=== PATIENT | male | born 1950 | race Caucasian/White ===

== ENCOUNTER → 2023-08-17 | Outpatient (CLI) | payer OTHER ==
--- NOTE | 2023-08-17 10:05 | US ---
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 No nephrolithiasis is seen. No huyen s are identified. The urinary bladder is anechoic. Bilateral ureteral jets are seen. IMPRESSION: No significant abnormality seen.
== END | disposition home or self-care (01) ==
LOC: RADUSWWP 09:22
PROVIDERS: ATTEND Family Medicine
DX: D80.9 Immunodeficiency with predominantly antibody defects, unspecified (principal)
CPT/HCPCS: 76770

== ENCOUNTER 2024-11-07 13:28 | Inpatient (IN) | payer OTHER, MEDICARE ==
[2024-11-07 14:37] LABS: Basophils # (A) 0.13 10*3/uL (0.00-0.10); Basophils % (A) 1.4 %; Eosinophils # (A) 0.15 10*3/uL (0.04-0.35); Eosinophils % (A) 1.6 %; HCT 35.7 % (39.6-50.0); Lymphocytes # (A) 0.97 10*3/uL (0.90-5.00); Lymphocytes % (A) 10.2 %; MCH 33.8 pg (27.0-32.0); MCHC 36.4 g/dL (32.0-37.0); MCV 92.7 fL (80.0-97.0); Mean Platelet Volume 9.5 fL (9.5-12.2); Monocytes # (A) 1.21 10*3/uL (0.20-1.00); Monocytes % (A) 12.7 %; Neutrophils # (A) 7.04 10*3/uL (1.80-7.70); Neutrophils % (A) 73.8 %; Platelet Count 307 10*3/uL (140-440); RBC 3.85 10*6/uL (4.40-5.60); RDW 11.8 % (11.5-14.5); WBC 9.53 10*3/uL (4.50-10.00)
--- NOTE | 2024-11-07 14:51 | XR ---
EXAMINATION TYPE: XR chest 2V DATE OF EXAM: 11/07/2024 2:46 PM COMPARISON: 02/17/2014 CLINICAL INDICATION: Male, 73 years old with history of Chest Pain: Shortness of breath TECHNIQUE: XR chest 2V views of the chest are obtained. FINDINGS: Scattered senescent parenchymal changes noted. Hyperinflation compatible with COPD. Increased basilar markings which may reflect atelectasis or developing infiltrates. Small effusions n oted. Heart size is stable. Mediastinal structures are stable and grossly unremarkable. No evidence for hilar prominence. Degenerative changes dorsal spine. IMPRESSION: 1. Increased basilar markings which may reflect atelectasis or developing infiltrates. Small effusion s noted. [facility], , 11/07/2024 2:48 PM
[2024-11-07 14:53] LABS: INR 1.1 (<1.2); Partial Thromboplastin Time 24.8 sec (22.0-30.0); Prothrombin Time 12.3 sec (10.0-12.5)
[2024-11-07] MEDS: ASPIRIN 81 MG PO STA (14:58)
[2024-11-07 14:59] LABS: ALT 22 U/L (4-49); AST 32 U/L (17-59); African American GFR (CKD) >90 (>60 ml/min/1.73 sqM); Albumin 4.7 g/dL (3.5-5.0); Alkaline Phosphatase 99 U/L (38-126); Anion Gap 14 mmol/L; Blood Urea Nitrogen 8 mg/dL (9-20); Calcium 10.2 mg/dL (8.4-10.2); Carbon Dioxide 23 mmol/L (22-30); Chloride 94 mmol/L (98-107); Glucose 217 mg/dL (74-99); Magnesium 1.3 mg/dL (1.6-2.3); Non-African American GFR(CKD) >90 (>60 ml/min/1.73 sqM); Potassium 4.1 mmol/L (3.5-5.1); Sodium 131 mmol/L (137-145); Total Bilirubin 0.9 mg/dL (0.2-1.3); Total Protein 7.9 g/dL (6.3-8.2)
[2024-11-07 15:07] LABS: NT-Pro-B-Type Natriuretic Pept 539 pg/mL
[2024-11-07 15:09] LABS: Appearance,Urine Clear (Clear); Bilirubin,Urine Negative (Negative); Blood,Urine Negative (Negative); Color,Urine Colorless; Glucose,Urine (UA) Negative (Negative); Ketones,Urine Negative (Negative); Leukocyte Esterase,Urine Negative (Negative); Nitrite,Urine Negative (Negative); Protein,Urine Negative (Negative); Specific Gravity,Urine 1.004 (1.001-1.035); Urobilinogen,Urine <2.0 mg/dL (<2.0)
[2024-11-07] MEDS: MAGNESIUM SULFATE-D5W PMX 1 GM in DEXTROSE/WATER 1 100ML.BAG IVPB ONE ×2 (15:38→19:43)
[2024-11-07] MEDS: FUROSEMIDE 10 MG/ML 4 ML VIAL IV STA (17:00)
--- NOTE | 2024-11-07 17:26 | ED ---
General Adult HPI - General Chief complaint: Shortness of Breath Stated complaint: SOB, bilateral leg swelling Time Seen by Provider: 11/07/24 14:00 Source: patient, RN notes reviewed, old records reviewed Mode of arrival: ambulatory Limitations: no limitations - History of Present Illness Initial comments: Patient is a 73-year-old male presents emergency department complaining of progressive worsening lower extremity swelling as well as shortness of breath. No chest pain or chest discomfort. Patient has had been having the swelling for the past 3 he weeks that is progressively gotten worse. Has also noticed some exertional dyspnea. No significant orthopnea but states he does awaken multiple times per night. Denies any history of kidney disease. No cardiac history other than hypertension. Once again denies any chest pain to myself. All symptoms have been progressive over the last 3 weeks. Presents for further evaluation at this time. Denies any fevers, chills, cough. - Related Data Home Medications Medication Instructions Recorded Confirmed [place]-3/Dha/Epa/Fish Oil [Fish Oil 1 tab PO DAILY 01/22/23 11/07/24 1,000 mg Softgel] Simvastatin 20 mg PO HS 01/22/23 11/07/24 lisinopriL [Zestril] 20 mg PO DAILY 01/22/23 11/07/24 metFORMIN HCL [Glucophage] 1,000 mg PO BID 01/22/23 11/07/24 Furosemide [Lasix] 20 mg PO DAILY 11/07/24 11/07/24 Magnesium Oxide [Mag-Ox] 400 mg PO BID 11/07/24 11/07/24 Multivit-Minerals/FA/Lycopene 1 tab PO DAILY 11/07/24 11/07/24 [One-A-Day Men's 50 Plus Tablet] Potassium Chloride ER [K-Dur 10] 10 meq PO HS 11/07/24 11/07/24 amLODIPine [Norvasc] 5 mg PO HS 11/07/24 11/07/24 amLODIPine [Norvasc] 10 mg PO DAILY 11/07/24 11/07/24 atenoloL [Tenormin] 25 mg PO DAILY 11/07/24 11/07/24 Allergies Allergy/AdvReac Type Severity Reaction Status Date / Time No Known Allergies Allergy Verified 11/07/24 16:14 Review of Systems ROS Statement: Those systems with pertinent positive or pertinent negative responses have been documented in the HPI. Review of Systems: CONST: Denies fever EYES: Denies blurry vision ENT: Denies nasal congestion C/V: Denies Chest pain RESP: Endorses exertional shortness of breath GI: Denies abdominal pain : Denies dysuria SKIN: Denies rash. MSK: Denies joint pain. NEURO: Denies headache ROS Other: All systems not noted in ROS Statement are negative. Past Medical History Past Medical History: Hyperlipidemia, Hypertension, Sleep Apnea/CPAP/BIPAP History of Any Multi-Drug Resistant Organisms: None Reported Additional Past Surgical History / Comment(s): deviated septum Past Anesthesia/Blood Transfusion Reactions: No Reported Reaction Additional Past Anesthesia/Blood Transfusion Reaction / Comment(s): no blood transfusion Past Psychological History: No Psychological Hx Reported Smoking Status: Former smoker Past Alcohol Use History: None Reported Past Drug Use History: None Reported - Past Family History Mother Family Medical History: Cancer Additional Family Medical History / Comment(s): leukemia Father Family Medical History: Myocardial Infarction ([place]) General Exam - General Exam Comments Initial Comments: General: Appears in no acute distress. HEAD: Normal with no signs of head trauma. EYES: EOMI ENT: Hearing grossly intact, normal oropharynx. RESPIRATORY: Clear breath sounds bilaterally. No wheezes, rales, or rhonchi. No hypoxia. No increased work of breathing. C/V: Irregular rate and rhythm. S1 and S2 auscultated, significant symmetrical lower extremity pitting edema, peripheral pulses 2+ and intact throughout ABD: Abd is soft, nontender, nondistended EXT: Normal range of motion, no obvious deformity SKIN: No rashes or lesions observed on exposed skin. NEURO: Alert and oriented x 4. Limitations: no limitations Course Vital Signs 11/07/24 11/07/24 11/07/24 13:29 15:00 16:59 Temperature 98.8 F Pulse Rate 77 74 70 Respiratory 18 20 20 Rate Blood Pressure 163/73 142/80 146/78 O2 Sat by Pulse 98 95 97 Oximetry 11/07/24 19:40 Temperature 98.6 F Pulse Rate 86 Respiratory 20 Rate Blood Pressure 157/81 O2 Sat by Pulse 97 Oximetry Medical Decision Making - Medical Decision Making Was pt. sent in by a medical professional or institution (, PA, BRAND STRATEGIST, urgent care, hospital, or half-way...) When possible be specific @ -No Did you speak to anyone other than the patient for history (EMS, parent, family, police, friend...)? What history was obtained from this source @ -No Did you review nursing and triage notes (agree or disagree)? Why? @ -I reviewed and agree with nursing and triage notes Were old charts reviewed (outside hosp., previous admission, EMS record, old EKG, old radiological studies, urgent care reports/EKG's, half-way records)? Report findings @ -No old charts were reviewed Differential Diagnosis (chest pain, altered mental status, abdominal pain women, abdominal pain men, vaginal bleeding, weakness, fever, dyspnea, syncope, headache, dizziness, GI bleed, back pain, seizure, CVA, palpatations, mental health, musculoskeletal)? @ -Differential Dyspnea: Coronary syndrome, arrhythmia, tamponade, asthma, COPD, pulmonary embolism, pneumonia, pneumothorax, pulmonary effusion, anaphylaxis, diabetic ketoacidosis, flailed chest, pulmonary contusion, diaphragmatic rupture, anemia, neuromuscular, this is not meant to be an all-inclusive list. EKG interpreted by me (3pts min.). @ -As above X-rays interpreted by me (1pt min.). @ -Chest x-ray shows bilateral pleural effusions. CT interpreted by me (1pt min.). @ -None done U/S interpreted by me (1pt. min.). @ -None done What testing was considered but not performed or refused? (CT, X-rays, U/S, labs)? Why? @ -None What meds were considered but not given or refused? Why? @ -None Did you discuss the management of the patient with other professionals (professionals i.e. , PA, BRAND STRATEGIST, lab, RT, psych nurse, drug abuse social worker, expense clerk, teacher, special weapons unit officer, case advocate)? Give summary @ -Discussed with admitting provider, Dr. Griffiths who accepted the admission. Was smoking cessation discussed for >3mins.? @ -No Was critical care preformed (if so, how long)? @ -No Were there social determinants of health that impacted care today? How? (Homelessness, low income, unemployed, alcoholism, drug addiction, t ransportation, low edu. Level, literacy, decrease access to med. care, prison, rehab)? @ -No Was there de-escalation of care discussed even if they declined (Discuss DNR or withdrawal of care, Hospice)? DNR status @ -No What co-morbidities impacted this encounter? (DM, HTN, Smoking, COPD, CAD, Cance r, CVA, ARF, Chemo, Hep., AIDS, mental health diagnosis, sleep apnea, morbid obesity)? @ -None Was patient admitted / discharged? Hospital course, mention meds given and route, prescriptions, significant lab abnormalities, going to OR and other pertinent info. @ -Patient presents with clinical symptoms of CHF. EKG shows what appears to be new onset atrial fibrillation. Unknown when it started. He is currently rate controlled. Vitals are within acceptable limits. We will obtain general cardiopulmonary workup. Patient was in agreement this plan. EKG x 2 showed no obvious acute ischemic process. Labs remarkable for a normal age-adjusted D-dimer. Patient is mildly hypomagnesemic to 1.3 which was replenished. Troponin is undetectable. BNP is within acceptable limits for the patient's age. I updated the patient. He will be admitted. I did initiate IV Lasix for the patient. I will defer anticoagulation for the admitting team. Patient was given an aspirin. Cardiology consulted. Echo ordered. I spoke with the admitting provider, Dr. Griffiths who accepted the admission. Undiagnosed new problem with uncertain prognosis? @ -No Drug Therapy requiring intensive monitoring for toxicity (Heparin, Nitro, Insulin, Cardizem)? @ -No Were any procedures done? @ -No Diagnosis/symptom? @ -New onset atrial fibrillation, CHF Acute, or Chronic, or Acute on Chronic? @ -Acute Uncomplicated (without systemic symptoms) or Complicated (systemic symptoms)? @ -Complicated Side effects of treatment? @ -No Exacerbation, Progression, or Severe Exacerbation? @ -No Poses a threat to life or bodily function? How? (Chest pain, [place], [place], pneumonia, PE, COPD, DKA, ARF, appy, cholecystitis, CVA, Diverticulitis, Homicidal, Suicidal, threat to staff... and all critical care pts) @ -Yes - Lab Data Result diagrams: 11/07/24 14:11 11/07/24 14:11 Lab Results 11/07/24 11/07/24 11/07/24 Range/Units 14:11 14:11 14:11 WBC 9.53 (4.50-10.00) 10*3/uL RBC 3.85 L (4.40-5.60) 10*6/uL Hgb 13.0 (13.0-17.0) g/dL Hct 35.7 L (39.6-50.0) % MCV 92.7 (80.0-97.0) fL MCH 33.8 H (27.0-32.0) pg MCHC 36.4 (32.0-37.0) g/dL Plt Count 307 (140-440) 10*3/uL MPV 9.5 (9.5-12.2) fL Immature Gran % (Auto) 0.3 % Neutrophils % 73.8 % Lymphocytes % 10.2 % Monocytes % 12.7 % Eosinophils % 1.6 % Basophils % 1.4 % Immature Gran # 0.03 (0.00-0.04) 10*3/uL Neutrophils # 7.04 (1.80-7.70) 10*3/uL Lymphocytes # 0.97 (0.90-5.00) 10*3/uL Monocytes # 1.21 H (0.20-1.00) 10*3/uL Eosinophils # 0.15 (0.04-0.35) 10*3/uL Basophils # 0.13 H (0.00-0.10) 10*3/uL PT 12.3 (10.0-12.5) sec INR 1.1 (<1.2) APTT 24.8 (22.0-30.0) sec D-Dimer (<0.60) mg/L FEU Sodium 131 L (137-145) mmol/L Potassium 4.1 (3.5-5.1) mmol/L Chloride 94 L (98-107) mmol/L Carbon Dioxide 23 (22-30) mmol/L Anion Gap 14 mmol/L BUN 8 L (9-20) mg/dL Creatinine 0.55 L (0.66-1.25) mg/dL Est GFR (CKD-EPI)AfAm >90 (>60 ml/min/1.73 sqM) Est GFR (CKD-EPI)NonAf >90 (>60 ml/min/1.73 sqM) Glucose 217 H (74-99) mg/dL Calcium 10.2 (8.4-10.2) mg/dL Magnesium 1.3 L (1.6-2.3) mg/dL Total Bilirubin 0.9 (0.2-1.3) mg/dL AST 32 (17-59) U/L ALT 22 (4-49) U/L Alkaline Phosphatase 99 (38-126) U/L Troponin I (0.000-0.034) ng/mL NT-Pro-B Natriuret Pep 539 pg/mL Total Protein 7.9 (6.3-8.2) g/dL Albumin 4.7 (3.5-5.0) g/dL Urine Color Urine Appearance (Clear) Urine pH (5.0-8.0) Ur Specific [place] (1.001-1.035) Urine Protein (Negative) Urine Glucose (UA) (Negative) Urine Ketones (Negative) Urine Blood (Negative) Urine Nitrite (Negative) Urine Bilirubin (Negative) Urine Urobilinogen (<2.0) mg/dL Ur Leukocyte Esterase (Negative) 11/07/24 11/07/24 11/07/24 Range/Units 14:11 14:11 14:59 WBC (4.50-10.00) 10*3/uL RBC (4.40-5.60) 10*6/uL Hgb (13.0-17.0) g/dL Hct (39.6-50.0) % MCV (80.0-97.0) fL MCH (27.0-32.0) pg MCHC (32.0-37.0) g/dL Plt Count (140-440) 10*3/uL MPV (9.5-12.2) fL Immature Gran % (Auto) % Neutrophils % % Lymphocytes % % Monocytes % % Eosinophils % % Basophils % % Immature Gran # (0.00-0.04) 10*3/uL Neutrophils # (1.80-7.70) 10*3/uL Lymphocytes # (0.90-5.00) 10*3/uL Monocytes # (0.20-1.00) 10*3/uL Eosinophils # (0.04-0.35) 10*3/uL Basophils # (0.00-0.10) 10*3/uL PT (10.0-12.5) sec INR (<1.2) APTT (22.0-30.0) sec D-Dimer 0.71 H (<0.60) mg/L FEU Sodium (137-145) mmol/L Potassium (3.5-5.1) mmol/L Chloride (98-107) mmol/L Carbon Dioxide (22-30) mmol/L Anion Gap mmol/L BUN (9-20) mg/dL Creatinine (0.66-1.25) mg/dL Est GFR (CKD-EPI)AfAm (>60 ml/min/1.73 sqM) Est GFR (CKD-EPI)NonAf (>60 ml/min/1.73 sqM) Glucose (74-99) mg/dL Calcium (8.4-10.2) mg/dL Magnesium (1.6-2.3) mg/dL Total Bilirubin (0.2-1.3) mg/dL AST (17-59) U/L ALT (4-49) U/L Alkaline Phosphatase (38-126) U/L Troponin I <0.012 (0.000-0.034) ng/mL NT-Pro-B Natriuret Pep pg/mL Total Protein (6.3-8.2) g/dL Albumin (3.5-5.0) g/dL Urine Color Colorless Urine Appearance Clear (Clear) Urine pH 6.0 (5.0-8.0) Ur Specific [place] 1.004 (1.001-1.035) Urine Protein Negative (Negative) Urine Glucose (UA) Negative (Negative) Urine Ketones Negative (Negative) Urine Blood Negative (Negative) Urine Nitrite Negative (Negative) Urine Bilirubin Negative (Negative) Urine Urobilinogen <2.0 (<2.0) mg/dL Ur Leukocyte Esterase Negative (Negative) - EKG Data -: EKG Interpreted by Me EKG Comments: 12-lead Electrocardiogram Interpretation Note EKG was reviewed and interpreted by myself. 12-lead ECG performed at 1350 is interpreted by me as revealing atrial fibrillation at a rate of 73 beats per minute. [place] is normal. CO interval is unobtainable, QRS durations 103 ms, QTc is 420 ms.. There were no ST or T wave abnormalities to suggest myocardial ischemia or injury. R wave progression across the precordium was satisfactory. By my interpretation this EKG is non-diagnostic for acute ischemia. No prior EKG for comparison. 12-lead Electrocardiogram Interpretation Note EKG was reviewed and interpreted by myself. 12-lead ECG performed at 1514 is interpreted by me as revealing atrial fibrillation at a rate of 68 beats per minute. [place] is normal. QRS duration is 109 ms, QTc is 443 ms.. There were no ST or T wave abnormalities to suggest myocardial ischemia or injury. R wave progression across the precordium was satisfactory. By my interpretation this EKG is non-diagnostic for acute ischemia. Disposition Clinical Impression: Atrial fibrillation, CHF (congestive heart failure) Disposition: ADMITTED IP TO THIS HOSP Condition: Stable Time of Disposition: 17:15
[2024-11-07] MEDS ORDERED: ONDANSETRON 4 MG/2 ML VIAL IVP PRN (17:31)
[2024-11-07] MEDS ORDERED: NALOXONE 0.4 MG/ML 1 ML VIAL IV PRN (17:31)
[2024-11-07] MEDS ORDERED: ACETAMINOPHEN TAB 325 MG TAB PO PRN (17:31)
--- NOTE | 2024-11-07 18:32 | P.PN ---
Progress Note - Text Progress Note Date: 11/07/24 73 year old M with PMH of HTN, HLD, DM presents to the ED for shortness of breath. Symptoms progressively getting worse over the past 2 weeks. He reports a productive cough of clear sputum. Initially he felt SOB with exertion but now at rest as well. Denies orthopnea. Reports worsening lower extremity swelling during this time as well. He denies any history of CHF, MO or CVA. Reports quitting smoking in 1985. Admits to social drinking. He denies any headache, N/V, fever or chills, palpitations, changes in urination or bowel habits. No changes in appetite or weight. No dizziness, numbness/weakness/tinging of the extremities. In the ED he underwent extensive evaluation. BP 163/73, HR 77, RR 18, T 98.8F, 98% on RA. CBC, Coag panel, CMP significant for RBC 3.85, HCt 35.7, Na 131, Cl 94, BUN 8, Cr 0.55, glu 217. Mag 1.3. Trop < 0.012 x 1. BNP 539. UA neg. D-Dimer 0.71. CXR concerning for pulmonary vascular congestion. Telemetry shows irregular rhythm concerning for A-Fib. General: no distress, appears at stated age Derm: warm, dry Head: atraumatic, normocephalic, symmetric Mouth: no lip lesion, mucus membranes moist Cardiovascular: S1 S2 irreg iregg. No murmur. Lungs: Decreased BS bilaterally, no accessory muscle use Ext: no gross muscle atrophy, 2-3+ pitting LE edema R>L, no contractures Neuro: No focal neurologic deficits. Psych: Alert and oriented. Based on my assessment of this patient, this patient meets a high complexity level of care. Dyspnea with pulmonary vascular congestion and bilateral LE swelling concerning for CHF: BNP 539. Start Lasix 20 mg IV BID. Strict intake and outtake. Daily weights. Obtain Echo. Cardiology consultation. Atrial fibrillation: New onset. Rate controlled. Stop Atenolol and start Metoprolol tartrate 25 mg PO BID. CHADVASC score of 4. Start Eliquis 5 mg PO BID. Maintain K > 4 and Mg > 2. Obtain Echo and TSH. Cardiology consult. Lower extremity swelling: RLE > LLE. Obtain venous duplex to rule out DVT. Hypervolemic hyponatremia: Hopeful improvement with IV diuresis. Hypomagnesemia: Given 1g Mag sulfate in the ED. Order an additional 1g Mag sulfate. Elevated D-Dimer: D-Dimer 0.71. Within normal limits when age adjusted. Hypertension: Metoprolol as above. Continue Amlodipine 10 mg PO QD + 5 mg PO QHS. Continue Lisinopril 20 mg PO QD. Dyslipidemia: Simvastatin 20 mg PO QHS. Diabetes mellitus: Obtain A1c. ISS low dose with accuchecks ACHS along with hypoglycemic precautions. CODE STATUS: FULL CODE DVT Prophylaxis: Eliquis. GI Prophylaxis: Designated medical POA if patient is not able to make medical decisions for themselves: Sisters. I have reviewed the following independent marketing consultant notes: ED note. I have reviewed the results of the following tests: As above. I have ordered the following tests: As above. I have discussed the care of this patient with the following independent historian: I have independently interpreted the following test below: CXR. I have discussed the management of this patient with the following physician: ED provider.
[2024-11-07] MEDS ORDERED: DEXTROSE 50% SYRINGE 50 ML IVP PRN ×2 (18:37)
--- NOTE | 2024-11-07 19:38 | US ---
EXAMINATION TYPE: US venous doppler duplex LE RT DATE OF EXAM: 11/07/2024 7:24 PM COMPARISON: NONE CLINICAL INDICATION: Male, 73 years old with history of swelling in right lower extremity; Right leg edema, Pain TECHNIQUE: The lower extremity deep venous system is examined utilizing real time linear array sonog lois with graded compression, color doppler sonography, and spectral doppler. SIDE PERFORMED: Right FINDINGS: VESSELS IMAGED: Common Femoral Vein Deep Femoral Vein Greater Saphenous Vein * Femoral Vein Popliteal Vein Small Saphenous Vein * Proximal Calf Veins (* superficial vessels) Right Leg: Negative for DVT, Color Doppler imaging shows patency of the vessels. Spectral waveforms are within normal limits. Bilateral pulsatile venous waveforms. Significant edema and laminar fluid noted at calf. Exam limited by habitus and edema. IMPRESSION: No ultrasound evidence for deep venous thrombosis. [facility], , 11/07/2024 7:36 PM
[2024-11-07] MEDS: INSULIN LISPRO (HumaLOG) 100 UNIT/ML 10 mL VL SQ SCH (20:43)
[2024-11-07] MEDS: APIXABAN 5 MG TAB PO SCH (20:44)
[2024-11-07] MEDS: ATORVASTATIN 10 MG TAB PO SCH (20:44)
[2024-11-07] MEDS: METOPROLOL TARTRATE 25 MG TAB PO SCH (20:44)
[2024-11-07] MEDS: FUROSEMIDE 10 MG/ML 2 ML VIAL IV SCH (20:45)
[2024-11-07 20:49] LABS: Glucose,Whole Blood 119 mg/dL (70-110)
[2024-11-07] MEDS ORDERED: amLODIPine 5 MG TAB PO SCH (21:00)
[2024-11-08 05:54] LABS: Glucose,Whole Blood 104 mg/dL (70-110)
[2024-11-08] MEDS: FUROSEMIDE 10 MG/ML 4 ML VIAL IV SCH (08:40)
[2024-11-08] MEDS: amLODIPine 10 MG TAB PO SCH (08:41)
[2024-11-08] MEDS: lisinopriL 20 MG TAB PO SCH (08:41)
[2024-11-08] MEDS ORDERED: ENOXAPARIN 40 MG/0.4 ML SYRINGE SQ SCH (09:00)
--- NOTE | 2024-11-08 09:28 | P.CRDCN ---
History of Present Illness Consult date: 11/08/24 Reason for Consult (text): New onset atrial fibrillation, CHF History of present illness: This is a 73-year-old male that does not follow with cardiology. He has a past medical history of hypertension, hyperlipidemia, diabetes, obstructive sleep apnea, remote history of tobacco use. We have been asked to evaluate the patient for new onset of atrial fibrillation and CHF. Patient states that he had developed increasing shortness of breath and lower extremity edema that had been significantly worse for the past couple of weeks to the point it was unbearable. He was going to call make an appointment at OR but he could not wait any longer. Blood pressure 136/70, heart rate 74, pulse ox 95% on 2 L nasal cannula. Patient is status post IV Lasix 40 mg x 1 and his home cardiac medications have been resumed. Patient is been started on Eliquis and switched beta-nubia to metoprolol. -EKG: Atrial fibrillation 68 bpm, #2 atrial fibrillation 73 bpm -Venous duplex negative for DVT bilaterally -Chest x-ray: Increased basilar markings may reflect atelectasis or developing infiltrates. Small effusions noted. -Laboratory studies: WBC 9.5, hemoglobin 13, D-dimer 0.71. Sodium 131, potassium 4.1, creatinine 0.55. Troponin negative x 1. proBNP 539. -Home cardiac medications: Amlodipine 10 mg in the morning and 5 mg in the evening, atenolol 25 mg daily, Lasix 20 mg daily, lisinopril 20 mg daily, magnesium oxide 400 mg twice daily, omega-3 daily, potassium chloride 10 mEq at at bedtime, simvastatin 20 mg at at bedtime. Review Of Systems: At the time of my exam: CONSTITUTIONAL: Denies fever or chills. HEENT: Denies blurred vision, vision changes, or eye pain. Denies hemoptysis CARDIOVASCULAR: Denies chest pain. Denies orthopnea. Denies PND. Denies palpitations RESPIRATORY: Denies shortness of breath. GASTROINTESTINAL: Denies abdominal pain. Denies nausea or vomiting. HEMATOLOGIC: Denies bleeding disorders. GENITOURINARY: Denies any blood in urine. SKIN: Denies puritis. Denies rash. Physical examination: Gen: This is 73-year-old male in no acute respiratory distress. VS: reviewed HEENT: Head is atraumatic, normocephalic. Pupils equal, round. Sclerae is anicteric. NECK: Supple. No JVD. LUNGS: Clear to auscultation. No wheezes or rhonchi. No intercostal retractions. HEART: Irregular rate and rhythm. Short systolic murmur at the apex. ABDOMEN: Soft No tenderness. EXTREMITIES: Moderate bilateral lower extremity edema. No calf tenderness. NEUROLOGICAL: Patient is awake, alert and oriented x3. Assessment: Acute on chronic heart failure New onset paroxysmal atrial fibrillation, currently rate controlled Elevated D-dimer, DVT ruled out by venous duplex Hypertension Hyperlipidemia Diabetes Obstructive sleep apnea Remote history of tobacco use Plan: Resume patient's home cardiac medications with the following changes that have already been made Metoprolol 25 mg twice daily, Eliquis 5 mg twice daily Start patient on IV Lasix 40 mg every 12 hours Monitor EZIO, daily weights, electrolytes and renal function Obtain 2-D echocardiogram and Doppler study to assess cardiac structure and function Further recommendations to follow based upon clinical course Thank you kindly for this consultation. Nurse practitioner note has been reviewed, I agree with documented findings and plan of care. Patient was seen and examined. Past Medical History Past Medical History: Diabetes Mellitus, Hyperlipidemia, Hypertension, Sleep Apnea/CPAP/BIPAP Additional Past Medical History / Comment(s): DM-pt reports borderline, takes metformin History of Any Multi-Drug Resistant Organisms: None Reported Additional Past Surgical History / Comment(s): deviated septum Past Anesthesia/Blood Transfusion Reactions: No Reported Reaction Additional Past Anesthesia/Blood Transfusion Reaction / Comment(s): no blood transfusion Past Psychological History: No Psychological Hx Reported Smoking Status: Former smoker Past Alcohol Use History: Occasional Additional Past Alcohol Use History / Comment(s): stopped smoking 1985 Past Drug Use History: None Reported - Past Family History Mother Family Medical History: Cancer Additional Family Medical History / Comment(s): leukemia Father Family Medical History: Myocardial Infarction (CT) Medications and Allergies Home Medications Medication Instructions Recorded Confirmed Type [place]-3/Dha/Epa/Fish Oil [Fish Oil 1 tab PO DAILY 01/22/23 11/07/24 History 1,000 mg Softgel] Simvastatin 20 mg PO HS 01/22/23 11/07/24 History lisinopriL [Zestril] 20 mg PO DAILY 01/22/23 11/07/24 History metFORMIN HCL [Glucophage] 1,000 mg PO BID 01/22/23 11/07/24 History Furosemide [Lasix] 20 mg PO DAILY 11/07/24 11/07/24 History Magnesium Oxide [Mag-Ox] 400 mg PO BID 11/07/24 11/07/24 History Multivit-Minerals/FA/Lycopene 1 tab PO DAILY 11/07/24 11/07/24 History [One-A-Day Men's 50 Plus Tablet] Potassium Chloride ER [K-Dur 10] 10 meq PO HS 11/07/24 11/07/24 History amLODIPine [Norvasc] 5 mg PO HS 11/07/24 11/07/24 History amLODIPine [Norvasc] 10 mg PO DAILY 11/07/24 11/07/24 History atenoloL [Tenormin] 25 mg PO DAILY 11/07/24 11/07/24 History Allergies Allergy/AdvReac Type Severity Reaction Status Date / Time No Known Allergies Allergy Verified 11/07/24 16:14 Physical Exam Vitals: Vital Signs Temp Pulse Pulse Resp BP BP Pulse Ox 11/08/24 07:00 98.4 F 74 17 136/70 95 11/08/24 02:00 78 18 11/08/24 00:34 97.9 F 78 18 135/71 97 11/07/24 22:49 98.3 F 80 18 170/70 96 11/07/24 21:51 98.5 F 76 18 146/80 96 11/07/24 19:40 98.6 F 86 20 157/81 97 11/07/24 16:59 70 20 146/78 97 11/07/24 15:00 74 20 142/80 95 11/07/24 13:29 98.8 F 77 18 163/73 98 Intake and Output 11/07/24 11/08/24 11/08/24 22:59 06:59 14:59 Intake Total 222 Output Total 250 1650 Balance - -1650 Intake: Oral 222 Output: Urine 250 1650 Other: # Voids 1 Weight 93.4 kg 92.5 kg Results 11/07/24 14:11 11/07/24 14:11 Cardiac Enzymes 11/07/24 11/07/24 Range/Units 14:11 14:11 AST 32 (17-59) U/L Troponin I <0.012 (0.000-0.034) ng/mL Coagulation 11/07/24 Range/Units 14:11 PT 12.3 (10.0-12.5) sec APTT 24.8 (22.0-30.0) sec CBC 11/07/24 Range/Units 14:11 WBC 9.53 (4.50-10.00) 10*3/uL RBC 3.85 L (4.40-5.60) 10*6/uL Hgb 13.0 (13.0-17.0) g/dL Hct 35.7 L (39.6-50.0) % Plt Count 307 (140-440) 10*3/uL Comprehensive Metabolic Panel 11/07/24 Range/Units 14:11 Sodium 131 L (137-145) mmol/L Potassium 4.1 (3.5-5.1) mmol/L Chloride 94 L (98-107) mmol/L Carbon Dioxide 23 (22-30) mmol/L BUN 8 L (9-20) mg/dL Creatinine 0.55 L (0.66-1.25) mg/dL Glucose 217 H (74-99) mg/dL Calcium 10.2 (8.4-10.2) mg/dL AST 32 (17-59) U/L ALT 22 (4-49) U/L Alkaline Phosphatase 99 (38-126) U/L Total Protein 7.9 (6.3-8.2) g/dL Albumin 4.7 (3.5-5.0) g/dL Current Medications Generic Name Dose Route Start Last Admin Trade Name Freq PRN Reason Stop Dose Admin Acetaminophen 650 mg 11/07/24 17:31 Acetaminophen Tab 325 Mg Tab PO Q6HR PRN Mild Pain or Fever > 100.5 Amlodipine Besylate 10 mg 11/08/24 09:00 Amlodipine 10 Mg Tab PO DAILY MARCUS Apixaban 5 mg 11/07/24 21:00 11/07/24 20:44 Apixaban 5 Mg Tab PO 5 mg BID MARCUS Administration Protocol Atorvastatin Calcium 10 mg 11/07/24 21:00 11/07/24 20:44 Atorvastatin 10 Mg Tab PO 10 mg HS MARCUS Administration Dextrose/Water 25 ml 11/07/24 18:37 Dextrose 50% Syringe 50 Ml IVP PER PROTOCOL PRN Hypoglycemia Protocol Dextrose/Water 50 ml 11/07/24 18:37 Dextrose 50% Syringe 50 Ml IVP PER PROTOCOL PRN Hypoglycemia Protocol Furosemide 20 mg 11/07/24 21:00 11/07/24 20:45 Furosemide 10 Mg/Ml 2 Ml Vial IV 20 mg Q12HR MARCUS Administration Insulin Human Lispro 0 unit 11/07/24 21:00 11/08/24 06:52 Insulin Lispro (Humalog) 100 Unit/Ml 10 Ml Vl SQ Not Given ACHS MARCUS Protocol Lisinopril 20 mg 11/08/24 09:00 Lisinopril 20 Mg Tab PO DAILY [facility] Metoprolol Tartrate 25 mg 11/07/24 21:00 11/07/24 20:44 Metoprolol Tartrate 25 Mg Tab PO 25 mg BID MARCUS Administration Naloxone HCl 0.2 mg 11/07/24 17:31 Naloxone 0.4 Mg/Ml 1 Ml Vial IV Q2M PRN Opioid Reversal Ondansetron HCl 4 mg 11/07/24 17:31 Ondansetron 4 Mg/2 Ml Vial IVP Q8HR PRN Nausea And Vomiting Intake and Output 11/07/24 11/08/24 11/08/24 22:59 06:59 14:59 Intake Total 222 Output Total 250 1650 Balance - Intake: Oral 222 Output: Urine 250 1650 Other: # Voids 1 Weight 93.4 kg 92.5 kg 11/07/24 14:11 11/07/24 14:11
[2024-11-08 10:04] LABS: Basophils # (A) 0.15 X 10*3/uL (0.00-0.10); Basophils % (A) 1.7 %; Eosinophils # (A) 0.31 X 10*3/uL (0.04-0.35); Eosinophils % (A) 3.5 %; HCT 37.4 % (39.6-50.0); HGB 12.8 g/dL (13.0-17.0); Lymphocytes # (A) 1.21 X 10*3/uL (0.90-5.00); Lymphocytes % (A) 13.5 %; MCH 32.9 pg (27.0-32.0); MCHC 34.2 g/dL (32.0-37.0); MCV 96.1 FL (80.0-97.0); Mean Platelet Volume 9.5 FL (9.5-12.2); Monocytes # (A) 1.27 X 10*3/uL (0.20-1.00); Monocytes % (A) 14.2 %; NRBC Per 100 WBC 0 X 10*3/uL (0.00-0.01); Neutrophils % (A) 66.8 %; Platelet Count 326 X 10*3/uL (140-440); RBC 3.89 X 10*6/uL (4.40-5.60); WBC 8.97 X 10*3/uL (4.50-10.00)
[2024-11-08 10:19] LABS: Chloride 97 mmol/L (96-109); Glucose 106 mg/dL (70-110); Magnesium 1.5 mg/dL (1.5-2.4); Potassium 3.4 mmol/L (3.5-5.5); Sodium 139 mmol/L (135-145)
[2024-11-08 10:20] LABS: ALT 22 U/L (10-49); AST 28 U/L (14-35); Albumin 4.2 g/dL (3.8-4.9); Albumin/Globulin Ratio 1.45 Ratio (1.60-3.17); Alkaline Phosphatase 112 U/L (41-126); Calcium 9.5 mg/dL (8.7-10.3); Carbon Dioxide 26.4 mmol/L (21.6-31.8); Globulin 2.9 g/dL (1.6-3.3); Total Bilirubin 0.6 mg/dL (0.3-1.2); Total Protein 7.1 g/dL (6.2-8.2)
--- NOTE | 2024-11-08 11:19 | P.PN ---
Subjective Progress Note Date: 11/08/24 Hospital Course: 73 year old M with PMH of HTN, HLD, DM presents to the ED for shortness of breath. Symptoms progressively getting worse over the past 2 weeks. He reports a productive cough of clear sputum. Initially he felt SOB with exertion but now at rest as well. Denies orthopnea. Reports worsening lower extremity swelling during this time as well. He denies any history of CHF, DC or CVA. Reports qu itting smoking in 1985. Admits to social drinking. He denies any headache, N/V, fever or chills, palpitations, changes in urination or bowel habits. No changes in appetite or weight. No dizziness, numbness/weakness/tinging of the extremities. In the ED he underwent extensive evaluation. BP 163/73, HR 77, RR 18, T 98.8F, 98% on RA. CBC, Coag panel, CMP significant for RBC 3.85, HCt 35.7, Na 131, Cl 94, BUN 8, Cr 0.55, glu 217. Mag 1.3. Trop < 0.012 x 1. BNP 539. UA neg. D-Dimer 0.71. CXR concerning for pulmonary vascular congestion. Telemetry shows irregular rhythm concerning for A-Fib. Subjective: Patient was seen and examined at bedside today. Reports shortness of breath has gotten better since yesterday. Making good urine output. Swelling has gone down in bilateral lower extremity. Denies fever, chills, chest pain, nausea, vomiting, diarrhea, constipation, dysuria. Pertinent positives and negatives as discussed above, a complete review of systems was performed and all other systems are negative. Vitals: Signs Reviewed Physical Exam: General: nontoxic, no distress, appears at stated age Derm: warm, dry, intact Head: atraumatic, normocephalic, symmetric Eyes: EOMI, anicteric sclera Mouth: no lip lesion, mucus membranes moist Cardiovascular: S1 S2 reg, no murmur, rubs, or gallops Lungs: CTA bilateral, no rhonchi, no rales, no accessory muscle use Abdominal: soft, non-tender to palpataion, no appreciable organomegaly Extremities: no gross muscle atrophy, 1+ pitting edema in bilateral LE, no contractures Neuro: Alert, Oriented, CNII-XII grossly intact, gait normal Psych: well appearing, appropriate affect Data Received Today: Pertinent Labs: WBC 8.97, hemoglobin 12.8, hematocrit 37.4, platelet 326, sodium 139, potassium 3.4, chloride 97, carbon dioxide 26.4, BUN 7.0, creatinine 0.7, glucose 106 Vitals: Temperature 98.4, heart rate 74, respiratory rate 17, blood pressure 136/70, O2 sat 95% on nasal cannula 2 L/min Imaging: Right lower extremity venous Doppler showed no ultrasound evidence for deep venous thrombosis EKG showed atrial fibrillation with ventricular rate of 68 bpm, QTc 443 ms, no obvious ST elevation or depression Repeat EKG showed atrial fibrillation with ventricular rate of 73 bpm, QTc 420 ms, no ST elevation or depression Assessment and Plan: Acute congestive heart failure exacerbation, unsure if systolic vs diastolic Acute hypoxic respiratory failure Cardiology increased Lasix to 40 mg IV BID. BNP 539. Strict intake and outtake. Daily weights. Pending Echo results. Cardiology consultation. on nasal cannula 2L/min saturating at 95% Supplemental oxygen as needed Obstructive sleep apnea order continuous CPAP, PEEP 10 as reported by patient Atrial fibrillation New onset. Rate controlled. Stop Atenolol and start Metoprolol tartrate 25 mg PO BID. CHADVASC score of 4. Start Eliquis 5 mg PO BID. Maintain K > 4 and Mg > 2. Obtain Echo and TSH. Cardiology consult. Hypokalemia Potassium 3.4 40 mill equivalents p.o. potassium chloride x 1 Lower extremity swelling: RLE > LLE. Venous doppler ultrasound of RLE showed no signs of DVT. Hypervolemic hyponatremia Hopeful improvement with IV diuresis. Hypomagnesemia Given 1g Mag sulfate in the ED. Order an additional 1g Mag sulfate. Elevated D-Dimer D-Dimer 0.71. Within normal limits when age adjusted. Hypertension Metoprolol as above. Continue Amlodipine 10 mg PO QD Continue Lisinopril 20 mg PO QD. Dyslipidemia Simvastatin 20 mg PO QHS. Diabetes mellitus Obtain A1c. ISS low dose with accuchecks ACHS along with hypoglycemic precautions. CODE STATUS: FULL CODE DVT Prophylaxis: Eliquis. GI Prophylaxis: Designated medical POA if patient is not able to make medical decisions for themselves: Sisters. I saw and evaluated the patient during the santana and critical portions of this encounter, and discussed the case in detail with the resident author of this note, I agree with the Assessment and Plan, and my changes, if any, are highlighted in blue. Objective - Vital Signs Vital signs: Vital Signs Temp 98.4 F 11/08/24 07:00 Pulse 74 11/08/24 07:00 Resp 17 11/08/24 07:00 BP 136/70 11/08/24 07:00 Pulse Ox 95 11/08/24 07:00 FiO2 Intake & Output 11/07/24 11/08/24 11/08/24 18:59 06:59 18:59 Intake Total 222 Output Total 1900 Balance -1678 Weight 102.512 kg 92.5 kg Intake: Oral 222 Output: Urine 1900 Other: # Voids 1 - Labs CBC & Chem 7: 11/08/24 05:43 11/08/24 05:43 Labs: Abnormal Lab Results - Last 24 Hours (Table) 11/07/24 11/07/24 11/07/24 Range/Units 14:11 14:11 14:11 RBC 3.85 L (4.40-5.60) 10*6/uL Hct 35.7 L (39.6-50.0) % MCH 33.8 H (27.0-32.0) pg Monocytes # 1.21 H (0.20-1.00) 10*3/uL Basophils # 0.13 H (0.00-0.10) 10*3/uL D-Dimer 0.71 H (<0.60) mg/L FEU Sodium 131 L (137-145) mmol/L Chloride 94 L (98-107) mmol/L BUN 8 L (9-20) mg/dL Creatinine 0.55 L (0.66-1.25) mg/dL Glucose 217 H (74-99) mg/dL POC Glucose (mg/dL) (70-110) mg/dL Magnesium 1.3 L (1.6-2.3) mg/dL 11/07/24 Range/Units 20:43 RBC (4.40-5.60) 10*6/uL Hct (39.6-50.0) % MCH (27.0-32.0) pg Monocytes # (0.20-1.00) 10*3/uL Basophils # (0.00-0.10) 10*3/uL D-Dimer (<0.60) mg/L FEU Sodium (137-145) mmol/L Chloride (98-107) mmol/L BUN (9-20) mg/dL Creatinine (0.66-1.25) mg/dL Glucose (74-99) mg/dL POC Glucose (mg/dL) 119 H (70-110) mg/dL Magnesium (1.6-2.3) mg/dL
[2024-11-08 12:09] LABS: Glucose,Whole Blood 207 mg/dL (70-110)
[2024-11-08] MEDS: POTASSIUM CHLORIDE ER 20 MEQ TAB.ER PO STA (13:04)
[2024-11-08] MEDS: MAGNESIUM SULFATE-D5W PMX 1 GM in DEXTROSE/WATER 1 100ML.BAG IVPB SCH (13:05)
[2024-11-08 17:17] LABS: Glucose,Whole Blood 111 mg/dL (70-110)
[2024-11-08 19:43] LABS: Glucose,Whole Blood 162 mg/dL (70-110)
[2024-11-09 05:53] LABS: Glucose,Whole Blood 122 mg/dL (70-110)
--- NOTE | 2024-11-09 07:49 | CA ---
Transthoracic Echo Report Name: Jeff Wong Age: 73 Gender: M : 1950 Exam Date: 11/08/2024 13:58 Exam Location: [facility] Ht (in): 68 Wt (lb): 226 Ordering Physician: Serge Ferrer MD Attending/Referring Phys: Superintendent Shannon Montesinos RDCS Procedure CPT: Indications: afib, eval for chf Cardiac Hx: Technical Quality: Fair Contrast 1: Total Dose (mL): Contrast 2: Total Dose (mL): MEASUREMENTS (Male / Female) Normal Values 2D ECHO LV Diastolic Diameter PLAX 5.5 cm 4.2 - 5.9 / 3.9 - 5.3 cm LV Systolic Diameter PLAX 4.2 cm IVS Diastolic Thickness 1.0 cm 0.6 - 1.0 / 0.6 - 0.9 cm LVPW Diastolic Thickness 1.2 cm 0.6 - 1.0 / 0.6 - 0.9 cm LV Relative Wall Thickness 0.4 RV Internal Dim ED PLAX 3.1 cm LVOT Diameter 2.0 cm LA Systolic Diameter LX 5.6 cm 3.0 - 4.0 / 2.7 - 3.8 cm LV Diastolic Volume MOD BP 73.3 cm??? 67 - 155 / 56 - 104 cm??? LV Systolic Volume MOD BP 23.2 cm??? - / 19 - 49 cm??? LV Ejection Fraction MOD BP 68.3 % >= 55 % LV Cardiac Index MOD BP 1288.5 cm???/min???m??? LV Diastolic Volume MOD 4C 70.5 cm??? LV Systolic Volume MOD 4C 28.1 cm??? LV Ejection Fraction MOD 4C 60.2 % LV Cardiac Index MOD 4C 1090.6 cm???/min???m??? LV Diastolic Length 4C 7.1 cm LV Systolic Length 4C 6.2 cm LV Diastolic Volume MOD 2C 75.6 cm??? LV Systolic Volume MOD 2C 17.7 cm??? LV Ejection Fraction MOD 2C 76.6 % LV Cardiac Index MOD 2C 1489.4 cm???/min???m??? LV Diastolic Length 2C 7.0 cm LV Systolic Length 2C 5.6 cm LA Volume 94.3 cm??? 18 - 58 / 22 - 52 cm??? LA Volume Index 41.8 cm???/m??? 16 - 28 cm???/m??? M-MODE Aortic Root Diameter MM 3.2 cm LA Systolic Diameter MM 5.9 cm LA Ao Ratio MM 1.9 AV Cusp Separation MM 1.5 cm DOPPLER AV Peak Velocity 207.3 cm/s AV Peak Gradient 17.2 mmHg AV Mean Velocity 149.5 cm/s AV Mean Gradient 9.8 mmHg AV Velocity Time Integral 44.4 cm AI Peak Velocity 271.6 cm/s AI Peak Gradient 29.5 mmHg AI Pressure Half Time 839.7 ms LVOT Peak Velocity 126.9 cm/s LVOT Peak Gradient 6.4 mmHg LVOT Velocity Time Integral 28.6 cm LVOT Stroke Volume 87.3 cm??? LVOT Stroke Volume Index 40.6 ml/m??? LVOT Cardiac Index 2245.0 cm???/min???m??? AV Area Cont Eq vti 2.0 cm??? AV Area Cont Eq pk 1.9 cm??? MV Peak Velocity 180.6 cm/s MV Peak Gradient 13.0 mmHg MV Mean Velocity 92.4 cm/s MV Mean Gradient 4.5 mmHg MV Velocity Time Integral 40.1 cm MV Area PHT 2.5 cm??? Mitral E Point Velocity 150.4 cm/s Mitral A Point Velocity 0.4 cm/s Mitral E to A Ratio 358.8 MV Deceleration Time 303.6 ms TR Peak Velocity 338.8 cm/s TR Peak Gradient 45.9 mmHg Right Ventricular Systolic Press 64.7 mmHg FINDINGS Left Ventricle Left ventricular ejection fraction is estimated at 55-60 %. Normal left ventricular systolic function with no obvious regional wall motion abnormalities. Left ventricular cavity size normal. Left ventricular wall thickness at upper limits of normal. Right Ventricle Severe right ventricular dilatation. Severe pulmonary hypertension. Reduced right ventricular global systolic function. Right Atrium Severe right atrial dilatation. Left Atrium Severely increased left atrial diameter. Severely increased left atrial volume. Mildly increased left atrial area. Mitral Valve Mitral valve thickened. Mitral annular calcification. Mild mitral regurgitation. Mild mitral stenosis, MV mean PG 4.47 mmHg. Aortic Valve Trileaflet aortic valve. Mild aortic stenosis with a peak gradient of 17mmHg and a mean gradient of 10mmHg. Mild aortic regurgitation. Tricuspid Valve Annular dilatation of the tricuspid valve. Severe tricuspid regurgitation. No tricuspid stenosis. Pulmonic Valve Structurally normal pulmonic valve. Mild pulmonic regurgitation. No pulmonic stenosis. Pericardium Small pericardial effusion. Pericardial effusion located near the right atrium. Aorta Normal size aortic root and proximal ascending aorta. CONCLUSIONS Normal LV function Biatrial enlargement Dilated right ventricle Mild mitral stenosis mild aortic stenosis Dilated right ventricle with moderate to severe tricuspid regurgitation Severe pulmonary hypertension Previewed by: Dr. Teddy Zarate MD (Electronically Signed) Final Date: 09 Nov 2024 07:48
--- NOTE | 2024-11-09 09:22 | P.PN ---
Subjective Progress Note Date: 11/09/24 Hospital Course: 73 year old M with PMH of HTN, HLD, DM presents to the ED for shortness of breath. Symptoms progressively getting worse over the past 2 weeks. He reports a productive cough of clear sputum. Initially he felt SOB with exertion but now at rest as well. Denies orthopnea. Reports worsening lower extremity swelling during this time as well. He denies any history of CHF, [place] or CVA. Reports qu itting smoking in 1985. Admits to social drinking. He denies any headache, N/V, fever or chills, palpitations, changes in urination or bowel habits. No changes in appetite or weight. No dizziness, numbness/weakness/tinging of the extremities. In the ED he underwent extensive evaluation. BP 163/73, HR 77, RR 18, T 98.8F, 98% on RA. CBC, Coag panel, CMP significant for RBC 3.85, HCt 35.7, Na 131, Cl 94, BUN 8, Cr 0.55, glu 217. Mag 1.3. Trop < 0.012 x 1. BNP 539. UA neg. D-Dimer 0.71. CXR concerning for pulmonary vascular congestion. Telemetry shows irregular rhythm concerning for A-Fib. Subjective: Patient was seen and examined at bedside today. Reports shortness of breath has gotten better since yesterday. Making good urine output. Swelling has gone down in bilateral lower extremity. Pertinent positives and negatives as discussed above, a complete review of systems was performed and all other systems are negative. Vitals: Signs Reviewed Physical Exam: General: nontoxic, no distress, appears at stated age Derm: warm, dry, intact Head: atraumatic, normocephalic, symmetric Eyes: EOMI, anicteric sclera Mouth: no lip lesion, mucus membranes moist Cardiovascular: S1 S2 reg, no murmur, rubs, or gallops Lungs: CTA bilateral, no rhonchi, no rales, no accessory muscle use Abdominal: soft, non-tender to palpataion, no appreciable organomegaly Extremities: no gross muscle atrophy, 1+ pitting edema in bilateral LE, no contractures Neuro: Alert, Oriented, CNII-XII grossly intact, gait normal Psych: well appearing, appropriate affect Data Received Today: Pertinent Labs: WBC 8.97, hemoglobin 12.8, hematocrit 37.4, platelet 326, sodium 139, potassium 3.4, chloride 97, carbon dioxide 26.4, BUN 7.0, creatinine 0.7, glucose 106 Vitals: Temperature 98.4, heart rate 74, respiratory rate 17, blood pressure 136/70, O2 sat 95% on nasal cannula 2 L/min Imaging: Right lower extremity venous Doppler showed no ultrasound evidence for deep venous thrombosis EKG showed atrial fibrillation with ventricular rate of 68 bpm, QTc 443 ms, no obvious ST elevation or depression Repeat EKG showed atrial fibrillation with ventricular rate of 73 bpm, QTc 420 ms, no ST elevation or depression Assessment and Plan: Acute right heart failure exacerbation Acute hypoxic respiratory failure Cardiology increased Lasix to 40 mg IV BID. BNP 539. Strict intake and outtake. Daily weights. Echo shows globally reduced RV systolic function, severe TR, mild MS, LAE Cardiology consultation. on nasal cannula 2L/min saturating at 95% Supplemental oxygen as needed Obstructive sleep apnea continuous CPAP, PEEP 10 Atrial fibrillation New onset. Rate controlled. Stop Atenolol and start Metoprolol tartrate 25 mg PO BID. CHADVASC score of 4. Start Eliquis 5 mg PO BID. Maintain K > 4 and Mg > 2. Obtain Echo and TSH. Cardiology consult. Hypokalemia Potassium 3.4 40 mill equivalents p.o. potassium chloride x 1 Lower extremity swelling: RLE > LLE. Venous doppler ultrasound of RLE showed no signs of DVT. Hypervolemic hyponatremia Hopeful improvement with IV diuresis. Hypomagnesemia Given 1g Mag sulfate in the ED. Order an additional 1g Mag sulfate. Elevated D-Dimer D-Dimer 0.71. Within normal limits when age adjusted. Hypertension Metoprolol as above. Continue Amlodipine 10 mg PO QD Continue Lisinopril 20 mg PO QD. Dyslipidemia Simvastatin 20 mg PO QHS. Diabetes mellitus Obtain A1c. ISS low dose with accuchecks ACHS along with hypoglycemic precautions. CODE STATUS: FULL CODE DVT Prophylaxis: Eliquis. GI Prophylaxis: Designated medical POA if patient is not able to make medical decisions for themselves: Sisters. Objective - Vital Signs Vital signs: Vital Signs Temp 98.8 F 11/09/24 07:00 Pulse 79 11/09/24 07:00 Resp 16 11/09/24 07:00 BP 167/74 11/09/24 07:00 Pulse Ox 95 11/09/24 07:00 FiO2 28 11/09/24 05:41 Intake & Output 11/08/24 11/09/24 11/09/24 18:59 06:59 18:59 Intake Total 222 Output Total 18990 Balance -1899 -2927 Weight 86.8 kg Intake: Oral 222 Output: Urine 1899 3150 Other: Voiding Method Toilet Urinal - Labs CBC & Chem 7: 11/08/24 05:43 11/08/24 05:43 Labs: Abnormal Lab Results - Last 24 Hours (Table) 11/08/24 11/08/24 11/08/24 Range/Units 05:43 05:43 05:43 RBC 3.89 L (4.40-5.60) X 10*6/uL Hgb 12.8 L (13.0-17.0) g/dL Hct 37.4 L (39.6-50.0) % MCH 32.9 H (27.0-32.0) pg Monocytes # 1.27 H (0.20-1.00) X 10*3/uL Basophils # 0.15 H (0.00-0.10) X 10*3/uL Potassium 3.4 L (3.5-5.5) mmol/L Anion Gap 15.60 H (4.00-12.00) mmol/L BUN 7.0 L (9.0-27.0) mg/dL BUN/Creatinine Ratio 10.00 L (12.00-20.00) Ratio POC Glucose (mg/dL) (70-110) mg/dL Hemoglobin A1c 6.3 H (<=6.0) % Albumin/Globulin Ratio 1.45 L (1.60-3.17) Ratio 11/08/24 11/08/24 11/08/24 Range/Units 12:07 17:14 19:41 RBC (4.40-5.60) X 10*6/uL Hgb (13.0-17.0) g/dL Hct (39.6-50.0) % MCH (27.0-32.0) pg Monocytes # (0.20-1.00) X 10*3/uL Basophils # (0.00-0.10) X 10*3/uL Potassium (3.5-5.5) mmol/L Anion Gap (4.00-12.00) mmol/L BUN (9.0-27.0) mg/dL BUN/Creatinine Ratio (12.00-20.00) Ratio POC Glucose (mg/dL) 207 H 111 H 162 H (70-110) mg/dL Hemoglobin A1c (<=6.0) % Albumin/Globulin Ratio (1.60-3.17) Ratio /10/31 Range/Units 05:52 RBC (4.40-5.60) X 10*6/uL Hgb (13.0-17.0) g/dL Hct (39.6-50.0) % MCH (27.0-32.0) pg Monocytes # (0.20-1.00) X 10*3/uL Basophils # (0.00-0.10) X 10*3/uL Potassium (3.5-5.5) mmol/L Anion Gap (4.00-12.00) mmol/L BUN (9.0-27.0) mg/dL BUN/Creatinine Ratio (12.00-20.00) Ratio POC Glucose (mg/dL) 122 H (70-110) mg/dL Hemoglobin A1c (<=6.0) % Albumin/Globulin Ratio (1.60-3.17) Ratio
--- NOTE | 2024-11-09 10:54 | P.PN ---
Subjective Progress Note Date: 11/09/24 Reason for Consult (text): New onset atrial fibrillation, CHF History of present illness: This is a 73-year-old male that does not follow with cardiology. He has a past medical history of hypertension, hyperlipidemia, diabetes, obstructive sleep apnea, remote history of tobacco use. We have been asked to evaluate the patient for new onset of atrial fibrillation and CHF. Patient states that he had developed increasing shortness of breath and lower extremity edema that had been significantly worse for the past couple of weeks to the point it was unbearable. He was going to call make an appointment at [facility] but he could not wait any longer. Blood pressure 136/70, heart rate 74, pulse ox 95% on 2 L nasal cannula. Patient is status post IV Lasix 40 mg x 1 and his home cardiac medications have been resumed. Patient is been started on Eliquis and switched beta-nubia to metoprolol. -EKG: Atrial fibrillation 68 bpm, #2 atrial fibrillation 73 bpm -Venous duplex negative for DVT bilaterally -Chest x-ray: Increased basilar markings may reflect atelectasis or developing infiltrates. Small effusions noted. -Laboratory studies: WBC 9.5, hemoglobin 13, D-dimer 0.71. Sodium 131, potassium 4.1, creatinine 0.55. Troponin negative x 1. proBNP 539. -Home cardiac medications: Amlodipine 10 mg in the morning and 5 mg in the evening, atenolol 25 mg daily, Lasix 20 mg daily, lisinopril 20 mg daily, magnesium oxide 400 mg twice daily, omega-3 daily, potassium chloride 10 mEq at at bedtime, simvastatin 20 mg at at bedtime. 11/09 Patient seen and examined. He has been maintained on IV Lasix 40 mg every 12 hours. He continues to have some mild lower extremity edema he has also been started on metoprolol and Eliquis on this hospitalization for new onset of A- fib. Blood pressure 167/74, heart rate 79, pulse ox 95% on room air. He remains in atrial fibrillation with controlled rate. Echocardiogram reveals EF of 55 to 60%, mild mitral stenosis, mild aortic stenosis, severe pulmonary hypertension. Physical examination: Gen: This is 73-year-old male in no acute respiratory distress. VS: reviewed HEENT: Head is atraumatic, normocephalic. Pupils equal, round. Sclerae is anicteric. NECK: Supple. No JVD. LUNGS: Clear to auscultation. No wheezes or rhonchi. No intercostal retractions. HEART: Irregular rate and rhythm. Short systolic murmur at the apex. ABDOMEN: Soft No tenderness. EXTREMITIES: Mild bilateral lower extremity edema. No calf tenderness. NEUROLOGICAL: Patient is awake, alert and oriented x3. Assessment: Acute on chronic heart failure New onset paroxysmal atrial fibrillation, currently rate controlled Elevated D-dimer, DVT ruled out by venous duplex Hypertension Hyperlipidemia Diabetes Obstructive sleep apnea on CPAP Remote history of tobacco use Severe pulmonary hypertension Mild mitral stenosis and mild aortic stenosis Plan: Continue patient's home cardiac medications Continue the addition of metoprolol 25 mg twice daily, Eliquis 5 mg twice daily for new atrial fibrillation Continue patient on IV Lasix 40 mg every 12 hours for another 24 hours, plan to transition to oral tomorrow Monitor EZIO, daily weights, electrolytes and renal function Anticipate discharge home tomorrow and patient will follow-up in the office with Dr. Zarate in 3 weeks. Further recommendations to follow based upon clinical course Nurse practitioner note has been reviewed, I agree with documented findings and plan of care. Patient was seen and examined. Objective - Vital Signs Vital signs: Vital Signs Temp 98.8 F 11/09/24 07:00 Pulse 79 11/09/24 07:00 Resp 16 11/09/24 07:00 BP 167/74 11/09/24 07:00 Pulse Ox 95 11/09/24 07:00 FiO2 28 11/09/24 05:41 Intake & Output 11/08/24 11/09/24 11/09/24 18:59 06:59 18:59 Intake Total 222 Output Total 1900 3150 Balance -1900 -2928 Weight 86.8 kg Intake: Oral 222 Output: Urine 1900 3150 Other: Voiding Method Toilet Urinal - Labs CBC & Chem 7: 11/08/24 05:43 11/08/24 05:43 Labs: Abnormal Lab Results - Last 24 Hours (Table) 11/08/24 11/08/24 11/08/24 Range/Units 05:43 05:43 05:43 RBC 3.89 L (4.40-5.60) X 10*6/uL Hgb 12.8 L (13.0-17.0) g/dL Hct 37.4 L (39.6-50.0) % MCH 32.9 H (27.0-32.0) pg Monocytes # 1.27 H (0.20-1.00) X 10*3/uL Basophils # 0.15 H (0.00-0.10) X 10*3/uL Potassium 3.4 L (3.5-5.5) mmol/L Anion Gap 15.60 H (4.00-12.00) mmol/L BUN 7.0 L (9.0-27.0) mg/dL BUN/Creatinine Ratio 10.00 L (12.00-20.00) Ratio POC Glucose (mg/dL) (70-110) mg/dL Hemoglobin A1c 6.3 H (<=6.0) % Albumin/Globulin Ratio 1.45 L (1.60-3.17) Ratio 11/08/24 11/08/24 11/08/24 Range/Units 12:07 17:14 19:41 RBC (4.40-5.60) X 10*6/uL Hgb (13.0-17.0) g/dL Hct (39.6-50.0) % MCH (27.0-32.0) pg Monocytes # (0.20-1.00) X 10*3/uL Basophils # (0.00-0.10) X 10*3/uL Potassium (3.5-5.5) mmol/L Anion Gap (4.00-12.00) mmol/L BUN (9.0-27.0) mg/dL BUN/Creatinine Ratio (12.00-20.00) Ratio POC Glucose (mg/dL) 207 H 111 H 162 H (70-110) mg/dL Hemoglobin A1c (<=6.0) % Albumin/Globulin Ratio (1.60-3.17) Ratio 11/09/24 Range/Units 05:52 RBC (4.40-5.60) X 10*6/uL Hgb (13.0-17.0) g/dL Hct (39.6-50.0) % MCH (27.0-32.0) pg Monocytes # (0.20-1.00) X 10*3/uL Basophils # (0.00-0.10) X 10*3/uL Potassium (3.5-5.5) mmol/L Anion Gap (4.00-12.00) mmol/L BUN (9.0-27.0) mg/dL BUN/Creatinine Ratio (12.00-20.00) Ratio POC Glucose (mg/dL) 122 H (70-110) mg/dL Hemoglobin A1c (<=6.0) % Albumin/Globulin Ratio (1.60-3.17) Ratio
[2024-11-09 11:08] LABS: BUN/Creat Ratio 11.67 Ratio (12.00-20.00); Calcium 9.6 mg/dL (8.7-10.3); Carbon Dioxide 24.7 mmol/L (21.6-31.8); Chloride 97 mmol/L (96-109); Glucose 132 mg/dL (70-110); Magnesium 1.5 mg/dL (1.5-2.4); Potassium 3.3 mmol/L (3.5-5.5); Sodium 137 mmol/L (135-145)
[2024-11-09] MEDS: MAGNESIUM SULFATE-D5W PMX 1 GM in DEXTROSE/WATER 1 100ML.BAG IVPB SCH (11:41)
[2024-11-09] MEDS: POTASSIUM CHLORIDE ER 20 MEQ TAB.ER PO STA (11:41)
[2024-11-09 12:36] LABS: Glucose,Whole Blood 186 mg/dL (70-110)
[2024-11-09 17:40] LABS: Glucose,Whole Blood 161 mg/dL (70-110)
[2024-11-09 19:46] LABS: Glucose,Whole Blood 215 mg/dL (70-110)
[2024-11-10 06:01] LABS: Glucose,Whole Blood 129 mg/dL (70-110)
[2024-11-10 08:00] VITALS: BP 151/85; PULSE 77; RESP 17; TEMP 97.7
[2024-11-10 08:49] LABS: Basophils # (A) 0.13 10*3/uL (0.00-0.10); Basophils % (A) 1.4 %; Eosinophils # (A) 0.31 10*3/uL (0.04-0.35); Eosinophils % (A) 3.4 %; HGB 15.5 g/dL (13.0-17.0); Lymphocytes # (A) 1.32 10*3/uL (0.90-5.00); Lymphocytes % (A) 14.7 %; MCH 33.6 pg (27.0-32.0); MCHC 35.2 g/dL (32.0-37.0); MCV 95.4 fL (80.0-97.0); Mean Platelet Volume 9.1 fL (9.5-12.2); Monocytes # (A) 1.14 10*3/uL (0.20-1.00); Monocytes % (A) 12.7 %; Neutrophils # (A) 6.06 10*3/uL (1.80-7.70); Neutrophils % (A) 67.5 %; Platelet Count 374 10*3/uL (140-440); RBC 4.61 10*6/uL (4.40-5.60); RDW 11.8 % (11.5-14.5); WBC 8.99 10*3/uL (4.50-10.00)
[2024-11-10 09:03] LABS: African American GFR (CKD) >90 (>60 ml/min/1.73 sqM); Anion Gap 10 mmol/L; Blood Urea Nitrogen 16 mg/dL (9-20); Calcium 9.9 mg/dL (8.4-10.2); Carbon Dioxide 30 mmol/L (22-30); Chloride 98 mmol/L (98-107); Glucose 213 mg/dL (74-99); Magnesium 1.7 mg/dL (1.6-2.3); Non-African American GFR(CKD) >90 (>60 ml/min/1.73 sqM); Potassium 3.7 mmol/L (3.5-5.1); Sodium 138 mmol/L (137-145)
[2024-11-10] MEDS: METOPROLOL TARTRATE 25 MG TAB PO STA (10:02)
[2024-11-10] MEDS: FUROSEMIDE 40 MG TAB PO SCH (10:02)
[2024-11-10] MEDS: POTASSIUM CHLORIDE ER 20 MEQ TAB.ER PO SCH (10:02)
--- NOTE | 2024-11-10 10:14 | P.PN ---
Subjective This is a 73-year-old male that does not follow with cardiology. He has a past medical history of hypertension, hyperlipidemia, diabetes, obstructive sleep apnea, remote history of tobacco use. We have been asked to evaluate the patient for new onset of atrial fibrillation and CHF. Patient states that he had developed increasing shortness of breath and lower extremity edema that had been significantly worse for the past couple of weeks to the point it was unbearable. He was going to call make an appointment at [facility] but he could not wait any longer. Blood pressure 136/70, heart rate 74, pulse ox 95% on 2 L nasal cannula. Patient is status post IV Lasix 40 mg x 1 and his home cardiac medications have been resumed. Patient is been started on Eliquis and switched beta-nubia to metoprolol. -EKG: Atrial fibrillation 68 bpm, #2 atrial fibrillation 73 bpm -Venous duplex negative for DVT bilaterally -Chest x-ray: Increased basilar markings may reflect atelectasis or developing infiltrates. Small effusions noted. -Laboratory studies: WBC 9.5, hemoglobin 13, D-dimer 0.71. Sodium 131, potassium 4.1, creatinine 0.55. Troponin negative x 1. proBNP 539. -Home cardiac medications: Amlodipine 10 mg in the morning and 5 mg in the eveni ng, atenolol 25 mg daily, Lasix 20 mg daily, lisinopril 20 mg daily, magnesium oxide 400 mg twice daily, omega-3 daily, potassium chloride 10 mEq at at bedtime, simvastatin 20 mg at at bedtime. 11/09 Patient seen and examined. He has been maintained on IV Lasix 40 mg every 12 hours. He continues to have some mild lower extremity edema he has also been started on metoprolol and Eliquis on this hospitalization for new onset of A- fib. Blood pressure 167/74, heart rate 79, pulse ox 95% on room air. He remains in atrial fibrillation with controlled rate. Echocardiogram reveals EF of 55 to 60%, mild mitral stenosis, mild aortic stenosis, severe pulmonary hypertension. 11/10/2024 Patient seen and examined resting in bed having breakfast. He overall indicates he is feeling much better. Lower extremity edema has improved. He continues to be in atrial fibrillation with somewhat decently controlled rates. He denies shortness of breath, dizziness, palpitations or chest pain. BP control is suboptimal. Labs reviewed, hgb 15.5, plt 374, sodium 138, potassium 3.7, magnesium 1.7. Physical examination: Gen: This is 73-year-old male in no acute respiratory distress. HEENT: Head is atraumatic, normocephalic. Pupils equal, round. Sclerae is anicteric. NECK: Supple. No JVD. LUNGS: Clear to auscultation. No wheezes or rhonchi. No intercostal retractions. HEART: Irregular rate and rhythm. Short systolic murmur at the apex. ABDOMEN: Soft No tenderness. EXTREMITIES: Mild bilateral lower extremity edema, improved 1+. No calf tenderness. NEUROLOGICAL: Patient is awake, alert and oriented x3. Assessment: Acute on chronic heart failure New onset paroxysmal atrial fibrillation, currently rate controlled Elevated D-dimer, DVT ruled out by venous duplex Hypertension Hyperlipidemia Diabetes Obstructive sleep apnea on CPAP Remote history of tobacco use Severe pulmonary hypertension Mild mitral stenosis and mild aortic stenosis Plan: Transition to oral Lasix 40 mg in the morning and 20 mg in the afternoon. Increase metoprolol to tartrate to 50 mg twice daily. Continue Eliquis for thromboembolic protection. Stable for discharge from a cardiac perspective, follow-up with Dr. Zarate as planned. Nurse practitioner note has been reviewed, I agree with documented findings and plan of care. Patient was seen and examined. Objective - Vital Signs Vital signs: Vital Signs Temp 97.7 F 11/10/24 07:00 Pulse 77 11/10/24 07:00 Resp 17 11/10/24 07:00 BP 151/85 11/10/24 07:00 Pulse Ox 96 11/10/24 07:00 FiO2 28 11/09/24 05:41 Intake & Output 11/09/24 11/10/24 11/10/24 18:59 06:59 18:59 Intake Total 118 591 Output Total 640 2250 Balance -522 -1659 Weight 85.4 kg Intake: Oral 118 591 Output: Urine 640 2250 Other: Voiding Method Toilet Urinal - Labs CBC & Chem 7: 11/10/24 08:37 11/10/24 08:37 Labs: Abnormal Lab Results - Last 24 Hours (Table) 11/09/24 11/09/24 11/09/24 Range/Units 05:18 12:35 17:38 MCH (27.0-32.0) pg MPV (9.5-12.2) fL Monocytes # (0.20-1.00) 10*3/uL Basophils # (0.00-0.10) 10*3/uL Potassium 3.3 L (3.5-5.5) mmol/L Anion Gap 15.30 H (4.00-12.00) mmol/L BUN 7.0 L (9.0-27.0) mg/dL BUN/Creatinine Ratio 11.67 L (12.00-20.00) Ratio Glucose 132 H (70-110) mg/dL POC Glucose (mg/dL) 186 H 161 H (70-110) mg/dL 11/09/24 11/10/24 11/10/24 Range/Units 19:44 05:59 08:37 MCH 33.6 H (27.0-32.0) pg MPV 9.1 L (9.5-12.2) fL Monocytes # 1.14 H (0.20-1.00) 10*3/uL Basophils # 0.13 H (0.00-0.10) 10*3/uL Potassium (3.5-5.5) mmol/L Anion Gap (4.00-12.00) mmol/L BUN (9.0-27.0) mg/dL BUN/Creatinine Ratio (12.00-20.00) Ratio Glucose (70-110) mg/dL POC Glucose (mg/dL) 215 H 129 H (70-110) mg/dL 11/10/24 Range/Units 08:37 MCH (27.0-32.0) pg MPV (9.5-12.2) fL Monocytes # (0.20-1.00) 10*3/uL Basophils # (0.00-0.10) 10*3/uL Potassium (3.5-5.5) mmol/L Anion Gap (4.00-12.00) mmol/L BUN (9.0-27.0) mg/dL BUN/Creatinine Ratio (12.00-20.00) Ratio Glucose 213 H (70-110) mg/dL POC Glucose (mg/dL) (70-110) mg/dL
--- NOTE | 2024-11-10 10:36 | P.DS ---
Providers Date of admission: 11/07/24 17:31 Expected date of discharge: 11/10/24 Attending physician: Krishna Griffiths MD Consults: 11/07/24 17:31 Consult Physician Routine Consulting Provider: [facility] Consult Reason/Comments: new onset atrial fibrillation, chf Do you want consulting provider notified?: Yes [facility] care physician: [facility] Course: Hospital course: 73 year old M with PMH of HTN, HLD, DM presents to the ED for shortness of breath. Symptoms progressively getting worse over the past 2 weeks. He reports a productive cough of clear sputum. Initially he felt SOB with exertion but now at rest as well. Denies orthopnea. Reports worsening lower extremity swelling during this time as well. He denies any history of CHF, [place] or CVA. Reports quitting smoking in 1985. Admits to social drinking. He denies any headache, N/V, fever or chills, palpitations, changes in urination or bowel habits. No changes in appetite or weight. No dizziness, numbness/weakness/tinging of the extremities. In the ED he underwent extensive evaluation. BP 163/73, HR 77, RR 18, T 98.8F, 98% on RA. CBC, Coag panel, CMP significant for RBC 3.85, HCt 35.7, Na 131, Cl 94, BUN 8, Cr 0.55, glu 217. Mag 1.3. Trop < 0.012 x 1. BNP 539. UA neg. D-Dimer 0.71. CXR concerning for pulmonary vascular congestion. Telemetry shows irregular rhythm concerning for A-Fib. Doppler ultrasound of the right lower extremity showed no evidence for DVT. Echocardiogram showed left ventricular ejection fraction of 55 to 60% and reduced right ventricular global systolic function. EKG on 11/10/2024 showed atrial fibrillation with premature aberrantly conducted complexes with ventricular rate of 72 bpm, QTc interval 455 ms. Patient is medically stable to be discharged back home on 11/10/2024. Eliquis 5 mg twice daily, metoprolol tartrate 50 mg twice daily and Lasix 40 mg daily were added to patient's home medications. Patient to follow-up with his PCP in 1 to [address] Zarate in 3 weeks after discharge. Physical examination GENERAL: This is a 73-year-old in no apparent distress at the time of examination. Pleasant and cooperative. HEENT: Head is atraumatic, normocephalic. Pupils are equal, round, and reactive to light. Sclerae anicteric. Conjunctivae are clear. Mucus membranes of the mouth are moist. Neck is supple. RESPIRATORY: Clear to auscultation. No wheezes, rales, or rhonchi. No use of accessory muscles. Patient maintaining oxygen saturation greater than 92%. CARDIOVASCULAR: Regular rate and rhythm. S1 and S2 noted. No systolic or diastolic murmur auscultated. No JVD noted. No S3 or S4 noted. GASTROINTESTINAL: No distention noted. Abdomen soft and round. Normal active bowel sounds auscultated x 4 quadrants. No pain or tenderness noted upon palpation. INTEGUMENTARY: No cyanosis. No jaundice. No rashes noted. No cellulitis noted. EXTREMITIES: 2+ peripheral pulses. No evidence of peripheral edema. No calf tenderness noted. NEUROLOGIC: Cranial nerves II-XII intact. PSYCHIATRIC: Awake, alert, and oriented X 3. Appropriate affect. Intact judgement and insight. Discharge diagnosis Acute right heart failure exacerbation Acute hypoxic respiratory failure Obstructive sleep apnea Atrial fibrillation new onset rate controlled Hypokalemia Lower extremity swelling Hypervolemic hyponatremia Hypomagnesemia Dyslipidemia Diabetes mellitus I saw and evaluated the patient during the snatana and critical portions of this encounter, and discussed the case in detail with the resident author of this note, I agree with the Assessment and Plan, and my changes, if any, are highlighted in blue. 40 minutes was spent on this discharge Patient Condition at Discharge: Stable Plan - Discharge Summary New Discharge Prescriptions: New Apixaban [Eliquis] 5 mg PO BID 30 Days #60 tab Metoprolol Tartrate [Lopressor] 50 mg PO BID 30 Days #60 tab Furosemide [Lasix] 40 mg PO DAILY 30 Days #30 tablet Continue lisinopriL [Zestril] 20 mg PO DAILY amLODIPine [Norvasc] 5 mg PO HS amLODIPine [Norvasc] 10 mg PO DAILY Potassium Chloride ER [K-Dur 10] 10 meq PO HS metFORMIN HCL [Glucophage] 1,000 mg PO BID Simvastatin 20 mg PO HS Irving-3/Dha/Epa/Fish Oil [Fish Oil 1,000 mg Softgel] 1 tab PO DAILY Magnesium Oxide [Mag-Ox] 400 mg PO BID Multivit-Minerals/FA/Lycopene [One-A-Day Men's 50 Plus Tablet] 1 tab PO DAILY Discontinued atenoloL [Tenormin] 25 mg PO DAILY Furosemide [Lasix] 20 mg PO DAILY Discharge Medication List Irving-3/Dha/Epa/Fish Oil [Fish Oil 1,000 mg Softgel] 1 tab PO DAILY 01/22/23 [History] Simvastatin 20 mg PO HS 01/22/23 [History] lisinopriL [Zestril] 20 mg PO DAILY 01/22/23 [History] metFORMIN HCL [Glucophage] 1,000 mg PO BID 01/22/23 [History] Magnesium Oxide [Mag-Ox] 400 mg PO BID 11/07/24 [History] Multivit-Minerals/FA/Lycopene [One-A-Day Men's 50 Plus Tablet] 1 tab PO DAILY 11/07/24 [History] Potassium Chloride ER [K-Dur 10] 10 meq PO HS 11/07/24 [History] amLODIPine [Norvasc] 5 mg PO HS 11/07/24 [History] amLODIPine [Norvasc] 10 mg PO DAILY 11/07/24 [History] Apixaban [Eliquis] 5 mg PO BID 30 Days #60 tab 11/10/24 [Rx] Furosemide [Lasix] 40 mg PO DAILY 30 Days #30 tablet 11/10/24 [Rx] Metoprolol Tartrate [Lopressor] 50 mg PO BID 30 Days #60 tab 11/10/24 [Rx] Follow up Appointment(s)/Referral(s): Deo Encarnacion DO [Primary Care Provider] - 1-2 days Teddy Zarate MD [STAFF PHYSICIAN] - 3 Weeks Discharge Disposition: HOME SELF-CARE
[2024-11-10 12:11] LABS: Glucose,Whole Blood 321 mg/dL (70-110)
[2024-11-10] MEDS: FUROSEMIDE 20 MG TAB PO SCH (13:06)
[2024-11-10] MEDS ORDERED: ATORVASTATIN 20 MG TAB PO SCH (21:00)
[2024-11-10] MEDS ORDERED: METOPROLOL TARTRATE 50 MG TAB PO SCH (21:00)
== END 2024-11-10 13:25 | disposition home or self-care (01) | DRG 291 ==
LOC: EC 13:28 → 6NMEDSUR 17:31 → OBSVTOIN 17:31 → 6NMEDSUR 18:11
PROVIDERS: ADMIT Family Medicine; ATTEND Family Medicine
DX: I11.0 Hypertensive heart disease with heart failure (principal); J96.01 Acute respiratory failure with hypoxia; I27.20 Pulmonary hypertension, unspecified; E11.9 Type 2 diabetes mellitus without complications; I08.0 Rheumatic disorders of both mitral and aortic valves; E87.1 Hypo-osmolality and hyponatremia; I48.0 Paroxysmal atrial fibrillation; I50.813 Acute on chronic right heart failure; E78.5 Hyperlipidemia, unspecified; G47.33 Obstructive sleep apnea (adult) (pediatric); E87.6 Hypokalemia; E83.42 Hypomagnesemia; Z79.01 Long term (current) use of anticoagulants; Z79.84 Long term (current) use of oral hypoglycemic drugs; Z87.891 Personal history of nicotine dependence; Z79.899 Other long term (current) drug therapy
CPT/HCPCS: 36415; 71046; 80048; 80053; 81003; 83036; 83735; 83880; 84443; 84484; 85025; 85379; 85610; 85730; 93005; 93306; 94660; 94760; 96365; 96366; 96375; 96376; 99285